=== PATIENT | male | born 1970 | race Caucasian/White ===

== ENCOUNTER 2022-03-02 01:08 | Observation (INO) ==
[2022-03-02] MEDS ORDERED: Diazepam INJ CARPUJECT 5 MG/ML IM ONE (01:37)
[2022-03-02] MEDS ORDERED: Morphine 10 MG/ML VIAL (1 ml) IV ONE (01:40)
[2022-03-02] MEDS ORDERED: Lidocaine 2% (CARDIAC or IV) 20 MG/ML 5 ML SYRINGE (100 MG) INJ ONE (06:18)
[2022-03-02] MEDS ORDERED: Acetaminophen IV 1 GM/100ML 100 ML IV ONE (06:30)
[2022-03-02] MEDS ORDERED: LORazepam 2 mg VIAL 1 ml IV PUSH ONE (10:12)
[2022-03-02] MEDS ORDERED: Lorazepam PYXIS KEY PRN (10:12)
[2022-03-02] MEDS ORDERED: Ondansetron 4 mg VIAL 2 MG/ML 2 ml VIAL IV PRN (10:50)
[2022-03-02] MEDS ORDERED: Cyclobenzaprine 5 mg TAB (NF) PO PRN (11:06)
[2022-03-02 11:30] LABS: Urine Appearance Clear; Urine Bilirubin Negative (Negative); Urine Blood Negative (Negative); Urine Color Yellow; Urine Glucose Negative (Negative); Urine Ketones Negative (Negative); Urine Nitrite Negative (Negative); Urine Protein Negative (Negative); Urine Specific Gravity 1.017 (1.002-1.030); Urine Urobilinogen Negative (Negative)
[2022-03-02] MEDS: Lidocaine PATCH 5% PATCH TRANSDERM SCH (11:51)
[2022-03-03 07:40] LABS: ABS Eosinophils 0.1 10^3/ul (0-0.6); ABS Lymphocytes 3.1 10^3/ul (1.0-4.8); ABS Monocytes 0.6 10^3/ul (0-0.8); ABS Neutrophils 4.8 10^3/ul (1.5-7.7); Eosinophil % 1.2 %; Hematocrit 46 % (42-52); Hemoglobin 15.6 g/dL (14.0-18.0); Lymphocyte % 35.9 %; Mean Corpuscular HGB Conc 34 g/dL (31-36); Mean Corpuscular Hemoglobin 30 pg (27-31); Mean Corpuscular Volume 87 fL (80-94); Mean Platelet Volume 6.9 fL (7.4-10.4); Platelet Count 285 10^3/uL (150-450); Red Blood Count 5.26 10^6 /uL (4.18-5.48); Red Cell Distribution Width 14 % (10-15); White Blood Count 8.7 10^3/uL (3.5-10.8)
[2022-03-03] MEDS: Lidocaine PATCH 5% PATCH TRANSDERM SCH (07:58)
[2022-03-03 08:00] LABS: Calcium 9.9 mg/dL (8.6-10.3); Potassium 4.1 mmol/L (3.5-5.0); eGFR CKD-EPI 98.1 (>60)
[2022-03-04] MEDS: Lidocaine PATCH 5% PATCH TRANSDERM SCH (11:57)
[2022-03-04 16:27] VITALS: BP 114/73
== END 2022-03-04 18:30 | disposition home or self-care (01) ==
LOC: ED 01:08 → EDHOLD 01:08 → SUATTDRO 10:50 → EDHOLD 14:20 → MED 14:49
PROVIDERS: ADMIT Nurse Practitioner; ATTEND Internal Medicine